=== PATIENT | female | born 1980 | race Caucasian/White ===

== ENCOUNTER 2019-05-22 08:39 | Emergency (ER) | payer MEDICAID, OTHER ==
[~2019-05-22] VITALS: Ht 165.1 cm; Wt 72.0 kg
[2019-05-22 08:41] VITALS: BP 107/70
== END 2019-05-22 10:48 | disposition home or self-care (01) ==
LOC: ER 08:50
DX: F32.9 Major depressive disorder, single episode, unspecified (principal)
CPT/HCPCS: 99283

== ENCOUNTER 2019-05-22 14:58 | Emergency (ER) | payer OTHER, MEDICAID ==
[~2019-05-22] VITALS: Ht 160 cm; Wt 71.0 kg
[2019-05-24 11:30] VITALS: BP 129/60
== END 2019-05-24 12:00 | disposition home or self-care (01) ==
LOC: ER 14:58
DX: F41.9 Anxiety disorder, unspecified (principal); F32.9 Major depressive disorder, single episode, unspecified; F12.10 Cannabis abuse, uncomplicated; F17.200 Nicotine dependence, unspecified, uncomplicated; Z59.0 Homelessness
CPT/HCPCS: 99284